=== PATIENT | male | born 1970 ===

== ENCOUNTER → 2019-06-28 14:20 | Outpatient (CLI) | payer BC, SELFPAY ==
--- NOTE | ~2019-06-28 | MR_ITS ---
EXAMINATION: MR shoulder RT wo con DATE: 06/28/2019 15:15 INDICATION: Chronic right shoulder pain. TECHNIQUE: Magnetic resonance imaging (MRI) of the right shoulder was performed without intravenous c ontrast. Sequences included axial PD-weighted FS FSE, coronal oblique PD-weighted FS FSE and T2-weigh kip FS FSE, and sagittal oblique T2-weighted FS FSE and T1-weighted FSE. COMPARISON: None. FINDINGS: Coracoacromial arch: The acromion undersurface is curved in morphology (type II). There is mild acromioclavicular joint os teoarthritis. There is mild subacromial/subdeltoid bursitis. Rotator cuff: There is mild supraspinatus and infraspinatus tendinopathy. Teres minor tendon is normal. There is mi ld subscapularis tendinopathy. No tear. There is no asymmetric fatty atrophy of the rotator cuff musc le bellies. Biceps tendon and glenoid labrum: Biceps tendon is in bicipital groove. Intra-articular biceps tendon is normal. The glenoid labrum is normal. Fluid: There is no glenohumeral joint effusion. Bones/cartilage: Glenoid cartilage is normal. Humeral head cartilage is normal. IMPRESSION: 1. Mild rotator cuff tendinopathy. No tear. 2. Mild acromioclavicular joint osteoarthritis. 3. Mild subacromial/subdeltoid bursitis. Reviewed, dictated and finalized at location A. CTIVE PRECINCT
== END ==
PROVIDERS: Visit Provider Orthopaedic Surgery
DX: M19.011 Primary osteoarthritis, right shoulder (principal); G89.29 Other chronic pain; M75.51 Bursitis of right shoulder
CPT/HCPCS: 73221